=== PATIENT | female | born 1955 | race Caucasian/White ===

== ENCOUNTER 2018-03-05 08:37 | Inpatient (IN) | payer OTHER ==
[2018-02-21 09:14] LABS: ABSOLUTE BASOPHILS 0.1 thou/uL (0.0-0.2); ABSOLUTE EOSINOPHILS 0.6 thou/uL (0.0-0.7); ABSOLUTE LYMPHOCYTES 2.2 thou/uL (0.8-5.3); ABSOLUTE MONOCYTES 0.5 thou/uL (0.0-1.2); BASOPHILS 1.1 %; EOSINOPHILS 7.9 %; HEMATOCRIT 39.6 % (37.0-47.0); HEMOGLOBIN 12.8 gm/dL (12.0-15.0); MCH 26.9 pg (26.0-34.0); MCHC 32.2 g/dL (28.0-37.0); MCV 83.5 fL (80.0-100.0); MONOCYTES 6.5 %; MPV 8.8 fl. (7.2-11.1); NUCLEATED RBCS 0 /100WBC; PLATELET COUNT* 275 thou/uL (150-400); POLYS 54.5 %; RBC 4.75 mil/uL (4.20-5.00); RDW-CV 14.1 % (10.5-14.5); WBC 7.3 thou/uL (4.0-11.0)
[2018-02-21 09:32] LABS: ALBUMIN 3.9 g/dL (3.4-5.0); CREATININE 0.7 mg/dL (0.6-1.3); POTASSIUM 3.8 mmol/L (3.5-5.1); TOTAL BILIRUBIN 0.2 mg/dL (<0.1-1.0); TOTAL PROTEIN 8.1 g/dL (6.4-8.2)
--- NOTE | 2018-02-21 16:47 | EKG ---
[place] [address] ELECTROCARDIOGRAM REPORT Name: KEHINDEBUSHRA WATSONAMA Travis Room: [facility]#: [id number] Admission: Attend Phys: Jeffrey Frost DO Discharge: Date of : 59 Report #: [id number] THIS REPORT FOR: //name// [facility] Test Date: 2018-02-21 Test Time: 09:22:36 Pat Name: AMA DOUGLASS Department: Room: Gender: F Glove Cutter: : 1955 Requested By: Jeffrey Frost Order Number: [id number] Reading MD: Tyshawn Glass Measurements Intervals [place] Rate: 81 P: 37 CA: 115 QRS: 67 QRSD: 88 T: 37 QT: 364 QTc: 423 Interpretive Statements Sinus rhythm Borderline short CA interval Compared to ECG 12/24/2009 07:45:55 Sinus bradycardia no longer present Electronically Signed On 02-21-2018 16:47:32 CDT by Tyshawn Glass [email or web address] <ELECTRONICALLY SIGNED> By: Tyshawn Glass MD, [facility] 02/21/18 1647 0922 09 Tyshawn Glass MD, FACC /EPI
[2018-02-22 02:07] LABS: GLYCOHEMOGLOBIN (HGB A1C) 5.3 % (4.8-5.6)
[~2018-03-05] VITALS: Ht 162.6 cm; Wt 90.7 kg
[~2018-03-05 08:37] MED LIST: "\\\"BLOOD PRESSURE MED\\\""; ACETAMINOPHEN325 M1 PO; AMBIEN 5 MG TABL5 MG PO; BUMEX2 MG PO; CEFDINIR PO; CIPRO; COZAAR 25 MG TA25 M1 PO; FLAGYL500 MG PO; FLEXERIL PO; LIPITOR10 MG PO; LISINOPRIL-HCT1 EACH PO; MYLANTA 12 OZ355 M1 PO; PROTONIX40 M2 PO; TUMS PO; [UNRECOGNIZED DRUG - REMARK]
[2018-03-05 11:00] VITALS: BP 126/84
[2018-03-05 15:45] VITALS: BP 120/94
[2018-03-05 20:40] VITALS: BP 122/78
[2018-03-06 00:58] VITALS: BP 107/76
[2018-03-06 04:55] LABS: HEMATOCRIT 33.5 % (37.0-47.0); HEMOGLOBIN 10.8 gm/dL (12.0-15.0)
[2018-03-06 05:10] VITALS: BP 113/65
[2018-03-06 09:00] VITALS: BP 113/63
--- NOTE | 2018-03-06 16:01 | OP ---
[address] [address] OPERATIVE REPORT Name: AMA DOUGLASS Room: [address] IN [facility]#: [id number] Admission: 03/05/18 Attend Phys: Elva Trinidad Discharge: Date of : 59 Report #: [id number] THIS REPORT FOR: //name// CC: Jeffrey Frost Physician staff JUAN Jara DICTATED BY: Eamon Vazquez DO DATE OF SERVICE: 03/05/2018 PREOPERATIVE DIAGNOSIS: Right knee degenerative joint disease. POSTOPERATIVE DIAGNOSIS: Right knee degenerative joint disease. PROCEDURE: Right total knee arthroplasty utilizing Chaka Persona total knee system with the following components: 1. Size 5 right standard CR femur. 2. Size D right tibia component. 3. A 29-mm diameter polyethylene patella component. 4. A 12-mm medial congruent polyethylene spacer. 5. Two bags of Palacos bone cement. SURGEON: Jeffrey Frost DO. DRY HOUSE OPERATOR: Eamon Vazquez DO. ANESTHESIA: General with an adductor canal block. ESTIMATED BLOOD LOSS: 150 mL. ANTIBIOTICS: Two grams Ancef IV preoperatively. SPECIMENS: None. DRAINS: None. COMPLICATIONS: None. DISPOSITION: Stable to PACU and will be admitted to the hospital for standard postoperative care. INDICATION FOR PROCEDURE: The patient is a pleasant 63-year-old female, presenting to [facility] with chronic complaints of right knee pain. She was found to have advanced degenerative joint disease changes on x-ray. Pain is [facility] [address] [place] [address] OPERATIVE REPORT Name: EVONNEAMA S Room: [address] [place] [facility].#: [id number] Admission: 03/05/18 Attend Phys: Elva Trinidad Discharge: Date of : 59 Report #: [id number] greatly impacting her quality of life, preventing her from performing activities that she wishes to. Pain was refractory to conservative measures, consisting of oral anti-inflammatories, activity modifications, home physical therapy exercises and intra-articular corticosteroid injections for much greater than 6 months' duration. Therefore, we recommended proceeding with a right total knee arthroplasty. Risks, benefits, complications, indications and alternative treatments were discussed and the patient wished to proceed with surgery today. DESCRIPTION OF PROCEDURE: The patient was seen in preoperative holding area. The correct operative site, right knee, was initialed. The patient was taken back to the operating suite, placed in supine position on the operating table and given the benefit of general anesthetic. A well-padded tourniquet was placed to the right upper thigh. Right lower extremity was then prepped and draped in typical fashion. Surgery began with a timeout, identifying correct patient, correct procedure, correct operative site, preoperative antibiotics and correct performing surgeon. Next, standard anterior longitudinal incision was made directly overlying the right knee, starting roughly 3 cm proximal to the superior pole of the patella, extending down to the tibial tubercle. Skin and subcutaneous tissues were incised sharply down to prepatellar fascia. A standard medial parapatellar arthrotomy was performed utilizing a new 10 blade scalpel. Patella was everted, knee was flexed. Intramedullary drill was introduced into the distal femoral canal in the normal fashion, followed by the intramedullary distal femoral cutting guide. It was taken that a 10-mm standard resection with 5 degrees valgus cut. Cutting block was pinned into place. Distal femoral cut was performed in normal fashion. Next, attention was turned to our proximal tibia cut. Extramedullary tibial guide was aligned in normal fashion over the medial third of the tibial tubercle on the tibial , the center of the talus and second metatarsal. A 10-mm resection was measured off of our high lateral side. Cutting block was pinned in the normal fashion. Proximal tibia resection was performed utilizing an oscillating saw. All bony debris was removed. Menisci were excised utilizing electrocautery. The 10 spacer block was inserted in extension and felt to have full extension and great stability with varus and valgus stress. Next, attention was again turned back to the femur. AP sizer was utilized to measure a size 5 cutting block. This was drilled in 3 degrees external rotation. A size 5, 4-in-1 cutting block was impacted into place in the normal fashion. Anterior, posterior and anterior-posterior chamfer cuts were performed utilizing an oscillating saw. All bony debris was removed. Next, a trial tibial tray was pinned into place, followed by a trial femoral component. Next, a 10-mm polyethylene spacer was inserted. Knee was taken through full range of motion; a little bit of laxity to varus and valgus stress, [place] [address] OPERATIVE REPORT Name: AMA DOUGLASS Room: [address] IN [facility]#: [id number] Admission: 03/05/18 Attend Phys: Elva Trinidad Discharge: Date of : 59 Report #: [id number] but had full flexion and extension. Next, patella was reamed utilizing the Chaka reaming system in a normal fashion and sized to a 29 mm patella. It was drilled in normal fashion. A trial patellar component was then inserted. The knee was taken again through range of motion. Patella was seen to be tracking appropriately. Next, all trial components were removed after drilling our femoral component and punching our tibia in the normal fashion. Next, the bony surfaces were thoroughly irrigated utilizing pulsatile lavage. Final components were cemented into place in a normal fashion, starting with the tibia followed by the femur. All excess cement was removed. A patella button was clamped into place. All excess cement again was removed. A 12-mm polyethylene spacer was inserted for compression and the leg was held in extension until all cement hardened. Next, the knee was again taken through range of motion. The 12-mm polyethylene spacer seemed to be fitting very appropriately. Had full extension, full flexion, stable in mid flexion region and was stable to varus and valgus stress. Any remaining loose cement was debrided at this time. A final 12-mm polyethylene spacer was then impacted into place. Knee was again taken through range of motion, had great stability throughout range of motion at full flexion and extension. Knee was thoroughly irrigated. Standard Betadine wash was performed followed by TXA. Tourniquet was deflated for a total time of 24 minutes. It was just inflated during the cementing process. The capsule was closed in a vrybpb-tv-fyinb fashion after the knee was again thoroughly irrigated. Again, capsule was closed with a #1 Vicryl suture in a dnslol-dk-aezzl fashion, also with a few #5 Ti-Cron sutures in a voykgg-yr-axuyr fashion also. Subcutaneous tissues were closed in a simple inverted fashion using 2-0 Monocryl suture. A running 3-0 subcuticular Stratafix barbed suture was performed. Dermabond was applied to the skin glue. Mepilex was applied as our sterile dressing. SHEREEN hose was applied to the right lower extremity. The patient was weaned from our general anesthetic and transferred in stable condition to the PACU. All sponge and needle counts were correct x 2. <ELECTRONICALLY SIGNED> By: Jeffrey Frost DO 03/06/18 1601 1320 [id number] Frost DO /nt
[2018-03-06 16:40] VITALS: BP 134/76
[2018-03-06 20:45] VITALS: BP 116/71
[2018-03-07 00:15] VITALS: BP 135/85
[2018-03-07 00:52] VITALS: BP 161/65
[2018-03-07 05:03] LABS: HEMATOCRIT 32.2 % (37.0-47.0); HEMOGLOBIN 10.4 gm/dL (12.0-15.0)
[2018-03-07 05:14] VITALS: BP 141/77
[2018-03-07 08:51] VITALS: BP 137/86
[2018-03-07 10:27] VITALS: BP 137/86
[2018-03-07] MEDS ORDERED: NORCO 5-325 TA1 EACH PO (10:42)
[2018-03-07] MEDS ORDERED: OXYCODONE HCL 55 MG PO (10:43)
[2018-03-07] MEDS ORDERED: ELIQUIS2.5 MG PO (10:44)
[2018-03-07 11:09] VITALS: BP 137/86
== END 2018-03-07 14:50 | disposition home health service (06) | DRG 470 ==
LOC: M.SUR 08:37 → M.ORTHSURG 13:11 → M.TBA 13:11 → M.ORTHSURG 14:38 → M.SUR 15:28 → M.ORTHSURG 03-07 14:50
PROVIDERS: Orthopaedic Surgery; ADMIT Internal Medicine
PROC: 0SRC0J9 Replacement of Right Knee Joint with Synthetic Substitute, Cemented, Open Approach (ICD-10-PCS; principal; 2018-03-05)
DX: M17.11 Unilateral primary osteoarthritis, right knee (principal); G89.29 Other chronic pain; K21.9 Gastro-esophageal reflux disease without esophagitis; E78.5 Hyperlipidemia, unspecified; F12.90 Cannabis use, unspecified, uncomplicated; R11.0 Nausea; I10 Essential (primary) hypertension; Z79.899 Other long term (current) drug therapy